=== PATIENT | female | born 1965 | race Caucasian/White ===

== ENCOUNTER 2018-06-25 11:04 | Inpatient (IN) | payer OTHER ==
[~2018-06-25 11:04] MED LIST: BUPIVACAINE 0.75%/DEXT (SPINAL) 2 ML INJ
[2018-06-25] MEDS: HIP PAIN COCKTAIL VANCO INJ ×2 (12:00→13:59)
[2018-06-25] MEDS: oxyCODONE (CR) 10 MG TAB [oxyCONTIN] PO (12:03)
[2018-06-25] MEDS: LACTATED RINGER'S 1,000 ML IV* (12:04)
[2018-06-25] MEDS: LANSOPRAZOLE 30 MG CAP PO (12:04)
[2018-06-25] MEDS: ONDANSETRON 4 MG INJ IV ×3 (12:04→18:36)
[2018-06-25] MEDS: DEXAMETHASONE 4 MG/ML 1 ML INJ IV (12:04)
[2018-06-25] MEDS: VANCOMYCIN 1 GM (PMX) 250 ML IVPB (12:07)
[2018-06-25] MEDS ORDERED: BISACODYL 10 MG SUPP PR (13:00)
[2018-06-25] MEDS ORDERED: NALOXONE (0.4 MG/ML) INJ IV ×2 (13:00→14:00)
[2018-06-25] MEDS ORDERED: MAGNESIUM HYDROXIDE 30ML CUP PO (13:00)
[2018-06-25] MEDS ORDERED: NA PHOSPHATE/BIPHOS 133 ML ENEMA PR (13:00)
[2018-06-25] MEDS ORDERED: DIPHENHYDRAMINE 50 MG INJ IV ×2 (13:00→14:00)
[2018-06-25] MEDS ORDERED: SENNA/DOCUSATE NA (8.6MG/50MG) TAB PO (13:00)
[2018-06-25] MEDS ORDERED: ONDANSETRON 4 MG INJ (13:15)
[2018-06-25] MEDS ORDERED: LIDOCAINE 2% (SDV) 5 ML INJ (13:15)
[2018-06-25] MEDS ORDERED: PROPOFOL 20 ML (13:15)
[2018-06-25] MEDS ORDERED: METOCLOPRAMIDE 10 MG INJ (13:15)
[2018-06-25] MEDS ORDERED: morphine SULFATE/PF (10 MG/10 ML) INJ (13:15)
[2018-06-25] MEDS: BACITRACIN 50000 UNITS INJ (13:59)
[2018-06-25] MEDS: POLYMYXIN B 500000 UNIT INJ (13:59)
[2018-06-25] MEDS ORDERED: HYDROmorphONE 0.5 MG/0.5 ML SYG IV (14:00)
[2018-06-25] MEDS: TRANEXAMIC ACID 1,000 MG in NS 100 ML PRE-OP X1 IVPB (14:00)
[2018-06-25] MEDS ORDERED: ONDANSETRON 4 MG INJ IV ×2 (14:00→22:00)
[2018-06-25] MEDS ORDERED: EPHEDrine SULFATE 50 MG/5 ML SYG (14:29)
[2018-06-25] MEDS: TRANEXAMIC ACID 1,000 MG in NS 100 ML INTRA-OP X1 IVPB (14:35)
[2018-06-25] MEDS: DOCUSATE SODIUM 100 MG CAP PO (16:01)
[2018-06-25] MEDS: ASPIRIN (EC) 325 MG TAB PO ×2 (16:02→19:18)
[2018-06-25] MEDS: SOD CHLORIDE 0.9% 1,000 ML IV (17:19)
[2018-06-25] MEDS ORDERED: VANCOMYCIN 1 GM (PMX) 250 ML IVPB (18:00)
[2018-06-25] MEDS: DIPHENHYDRAMINE 25 MG CAP PO (20:25)
[2018-06-25] MEDS: VENLAFAXINE (XR) 75 MG CAP PO (20:25)
[2018-06-25] MEDS: GABAPENTIN 100 MG CAP PO (20:26)
[2018-06-25] MEDS: MULTIVITAMINS THERAPEUTIC TAB PO (20:26)
[2018-06-25] MEDS: LOSARTAN 25 MG TAB PO (21:00)
[2018-06-26] MEDS: VANCOMYCIN 1 GM (PMX) 250 ML IVPB ×2 (00:56→12:37)
[2018-06-26] MEDS: ONDANSETRON 4 MG INJ IV ×2 (00:57→06:31)
[2018-06-26] MEDS: SOD CHLORIDE 0.9% 1,000 ML IV ×2 (01:16→06:31)
[2018-06-26 05:34] LABS: ADD MAN DIFF? NO
[2018-06-26 05:41] LABS: WHITE BLOOD COUNT 8.4 10^3/ul (4.8-10.8)
[2018-06-26 05:41] LABS: BASOPHILS % 0.1 % (0.0-2.0); HEMATOCRIT 27.7 % (37.0-47.0); HEMOGLOBIN 8.7 g/dl (12.0-16.0); LYMPHOCYTES # 0.9 10^3/ul (0.8-2.9); LYMPHOCYTES % 11.1 % (15.0-51.0); MEAN CORPUSCULAR HEMOGLOBIN 27.4 pg (29.0-33.0); MEAN CORPUSCULAR HGB CONC 31.4 g/dl (32.0-37.0); MEAN CORPUSCULAR VOLUME 87.1 fl (82.0-101.0); MEAN PLATELET VOLUME 10.2 fl (7.4-10.4); MONOCYTE # 0.9 10^3/ul (0.3-0.9); MONOCYTES % 10.3 % (0.0-11.0); NEUTROPHIL # 6.6 10^3/ul (1.6-7.5); PLATELET COUNT 232 10^3/UL (140-415); RED BLOOD COUNT 3.18 10^6/ul (4.20-5.40); RED CELL DISTRIBUTION WIDTH 14.5 % (11.5-14.5)
[2018-06-26 05:56] LABS: ANION GAP 9 (8-16); BLOOD UREA NITROGEN 21 mg/dl (7-20); CALCIUM 8.4 mg/dl (8.4-10.2); CARBON DIOXIDE 26 mmol/L (21-31); CHLORIDE 107 mmol/L (97-110); GLUCOSE 113 mg/dl (70-220); POTASSIUM 4.6 mmol/L (3.5-5.1); SODIUM 137 mmol/L (135-144)
[2018-06-26] MEDS: BETHANECHOL 25 MG TAB PO (06:31)
[2018-06-26] MEDS: HYDROmorphONE 0.5 MG/0.5 ML SYG IV (06:47)
[2018-06-26] MEDS: DOCUSATE SODIUM 100 MG CAP PO ×2 (08:44→21:11)
[2018-06-26] MEDS: ASPIRIN (EC) 325 MG TAB PO ×2 (08:44→21:11)
[2018-06-26] MEDS: GABAPENTIN 100 MG CAP PO ×2 (08:44→21:10)
[2018-06-26] MEDS: IBUPROFEN 800 MG TAB PO ×3 (08:44→21:10)
[2018-06-26] MEDS: traMADol 50 MG TAB PO ×2 (08:45→18:44)
[2018-06-26] MEDS: FERROUS FUMARATE (SR) TAB PO ×2 (08:45→21:11)
[2018-06-26] MEDS ORDERED: CELECOXIB 200 MG CAP PO (09:00)
[2018-06-26] MEDS: VENLAFAXINE (XR) 75 MG CAP PO (21:10)
[2018-06-26] MEDS: LOSARTAN 25 MG TAB PO (21:11)
[2018-06-26] MEDS: MULTIVITAMINS THERAPEUTIC TAB PO (21:11)
[2018-06-26] MEDS: KETOROLAC 15 MG INJ IV (23:43)
[2018-06-27] MEDS: SOD CHLORIDE 0.9% 1,000 ML IV (01:07)
[2018-06-27 05:00] LABS: ADD MAN DIFF? NO
[2018-06-27 05:08] LABS: BASOPHILS % 0.3 % (0.0-2.0); EOSINOPHILS % 0.2 % (0.0-7.0); HEMATOCRIT 29.4 % (37.0-47.0); HEMOGLOBIN 9.2 g/dl (12.0-16.0); LYMPHOCYTES # 0.8 10^3/ul (0.8-2.9); LYMPHOCYTES % 12.5 % (15.0-51.0); MEAN CORPUSCULAR HEMOGLOBIN 27.1 pg (29.0-33.0); MEAN CORPUSCULAR HGB CONC 31.3 g/dl (32.0-37.0); MEAN CORPUSCULAR VOLUME 86.7 fl (82.0-101.0); MEAN PLATELET VOLUME 10.1 fl (7.4-10.4); MONOCYTE # 0.8 10^3/ul (0.3-0.9); MONOCYTES % 11.4 % (0.0-11.0); NEUTROPHILS % 75.4 % (39.0-77.0); PLATELET COUNT 231 10^3/UL (140-415); RED BLOOD COUNT 3.39 10^6/ul (4.20-5.40); RED CELL DISTRIBUTION WIDTH 14.6 % (11.5-14.5)
[2018-06-27 05:08] LABS: WHITE BLOOD COUNT 6.6 10^3/ul (4.8-10.8)
[2018-06-27 05:55] LABS: ANION GAP 13 (8-16); BLOOD UREA NITROGEN 14 mg/dl (7-20); CALCIUM 8.8 mg/dl (8.4-10.2); CARBON DIOXIDE 27 mmol/L (21-31); CHLORIDE 108 mmol/L (97-110); CREATININE 0.77 mg/dl (0.44-1.00); GLUCOSE 119 mg/dl (70-220); SODIUM 144 mmol/L (135-144)
[2018-06-27] MEDS: traMADol 50 MG TAB PO (06:29)
[2018-06-27] MEDS: PANTOPRAZOLE (EC) 40 MG TAB PO (06:29)
[2018-06-27] MEDS: IBUPROFEN 800 MG TAB PO (08:27)
[2018-06-27] MEDS: FERROUS FUMARATE (SR) TAB PO (08:28)
[2018-06-27] MEDS: GABAPENTIN 100 MG CAP PO (08:28)
[2018-06-27] MEDS: ASPIRIN (EC) 325 MG TAB PO (08:28)
[2018-06-27] MEDS: DOCUSATE SODIUM 100 MG CAP PO (08:28)
[2018-06-27] MEDS: KETOROLAC 15 MG INJ IV (08:31)
== END 2018-06-27 12:15 | disposition home health service (06) | DRG 470 ==
LOC: REC 11:04 → MS1 17:00
PROC: 0SRD069 Replacement of Left Knee Joint with Oxidized Zirconium on Polyethylene Synthetic Substitute, Cemented, Open Approach (ICD-10-PCS; principal; 2018-06-25 13:15)
DX: M17.12 Unilateral primary osteoarthritis, left knee (principal); I10 Essential (primary) hypertension
CPT/HCPCS: 73560; 80048; 85025; 87081; 87086; 88304; 88311; 97110; 97116; 97161; 97166; 97530

== ENCOUNTER 2018-10-22 07:21 | Inpatient (IN) | payer OTHER ==
[2018-10-22] MEDS: LACTATED RINGER'S 1,000 ML IV* (06:00)
[2018-10-22] MEDS: TRANEXAMIC ACID 1,000 MG in NS 100 ML INTRA-OP X1 IVPB (06:00)
[~2018-10-22 07:21] MED LIST changes: -BUPIVACAINE 0.75%/DEXT (SPINAL) 2 ML INJ; +CEFAZOLIN 1 GM INJ
[2018-10-22] MEDS: VANCOMYCIN 1 GM (PMX) 250 ML IVPB ×2 (08:34→19:56)
[2018-10-22] MEDS: LANSOPRAZOLE 30 MG CAP PO (08:34)
[2018-10-22] MEDS: DEXAMETHASONE 4 MG/ML 1 ML INJ IV (08:34)
[2018-10-22] MEDS: ONDANSETRON 4 MG INJ IV ×2 (08:34→22:04)
[2018-10-22] MEDS: SOD CHLORIDE 0.9% 1,000 ML IV ×2 (10:04→17:53)
[2018-10-22] MEDS ORDERED: morphine SULFATE/PF (10 MG/10 ML) INJ (10:23)
[2018-10-22] MEDS ORDERED: MIDAZOLAM 1 MG/ML 2 ML INJ (10:23)
[2018-10-22] MEDS ORDERED: FENTAnyl 50 MCG/ML VIAL (10:23)
[2018-10-22] MEDS: TRANEXAMIC ACID 1,000 MG in NS 100 ML PRE-OP X1 IVPB (10:24)
[2018-10-22] MEDS ORDERED: BETHANECHOL 25 MG TAB PO (10:30)
[2018-10-22] MEDS ORDERED: NA PHOSPHATE/BIPHOS 133 ML ENEMA PR (10:30)
[2018-10-22] MEDS ORDERED: BISACODYL 10 MG SUPP PR (10:30)
[2018-10-22] MEDS ORDERED: NACL 0.9% 3 ML SYG IV (10:30)
[2018-10-22] MEDS ORDERED: MAGNESIUM HYDROXIDE 30ML CUP PO (10:30)
[2018-10-22] MEDS ORDERED: SENNA/DOCUSATE NA (8.6MG/50MG) TAB PO (10:30)
[2018-10-22] MEDS ORDERED: NALOXONE (0.4 MG/ML) INJ IV (10:30)
[2018-10-22] MEDS: HIP PAIN COCKTAIL VANCO INJ (11:41)
[2018-10-22] MEDS: POLYMYXIN B 500000 UNIT INJ (11:41)
[2018-10-22] MEDS: BACITRACIN 50000 UNITS INJ IRR (11:41)
[2018-10-22] MEDS ORDERED: LIDOCAINE 2% (SDV) 5 ML INJ (12:03)
[2018-10-22] MEDS ORDERED: ONDANSETRON 4 MG INJ (12:03)
[2018-10-22] MEDS ORDERED: ROCURONIUM 50 MG INJ (12:03)
[2018-10-22] MEDS ORDERED: PROPOFOL 20 ML (12:03)
[2018-10-22] MEDS ORDERED: METOCLOPRAMIDE 10 MG INJ IV (12:30)
[2018-10-22] MEDS ORDERED: FENTAnyl 50 MCG/ML VIAL IV (12:30)
[2018-10-22] MEDS ORDERED: DIPHENHYDRAMINE 50 MG INJ IV (12:30)
[2018-10-22] MEDS ORDERED: ONDANSETRON 4 MG INJ IV (12:30)
[2018-10-22] MEDS ORDERED: hydrALAzine 20 MG INJ IV (12:30)
[2018-10-22] MEDS ORDERED: LABETALOL HCL 20MG INJ IV (12:30)
[2018-10-22] MEDS ORDERED: HYDROmorphONE 1 MG/5 ML IV SYRINGE IV ×2 (12:30)
[2018-10-22] MEDS: ASPIRIN 81 MG TAB PO (12:52)
[2018-10-22] MEDS: DOCUSATE SODIUM 100 MG CAP PO (12:53)
[2018-10-22] MEDS: GABAPENTIN 100 MG CAP PO ×2 (13:00→21:37)
[2018-10-22] MEDS: traMADol 50 MG TAB PO (17:53)
[2018-10-22] MEDS: VENLAFAXINE (XR) 75 MG CAP PO (21:36)
[2018-10-22] MEDS: FENOFIBRATE 145 MG TAB PO (21:36)
[2018-10-22] MEDS: MULTIVITAMINS THERAPEUTIC TAB PO (21:36)
[2018-10-22] MEDS: LOSARTAN 25 MG TAB PO (21:37)
[2018-10-22] MEDS: DIPHENHYDRAMINE 50 MG INJ IV (22:04)
[2018-10-22] MEDS: oxyCODONE 5 MG TAB PO (22:04)
[2018-10-23] MEDS: traMADol 50 MG TAB PO ×2 (04:52→11:08)
[2018-10-23 05:21] LABS: ADD MAN DIFF? NO
[2018-10-23 05:27] LABS: WHITE BLOOD COUNT 7.6 10^3/ul (4.8-10.8)
[2018-10-23 05:27] LABS: BASOPHILS % 0.3 % (0.0-2.0); HEMATOCRIT 28.2 % (37.0-47.0); HEMOGLOBIN 8.7 g/dl (12.0-16.0); LYMPHOCYTES # 0.9 10^3/ul (0.8-2.9); LYMPHOCYTES % 12.2 % (15.0-51.0); MEAN CORPUSCULAR HEMOGLOBIN 26.4 pg (29.0-33.0); MEAN CORPUSCULAR HGB CONC 30.9 g/dl (32.0-37.0); MEAN CORPUSCULAR VOLUME 85.7 fl (82.0-101.0); MEAN PLATELET VOLUME 9.9 fl (7.4-10.4); MONOCYTE # 0.9 10^3/ul (0.3-0.9); MONOCYTES % 12.2 % (0.0-11.0); NEUTROPHIL # 5.7 10^3/ul (1.6-7.5); NEUTROPHILS % 74.9 % (39.0-77.0); PLATELET COUNT 281 10^3/UL (140-415); RED BLOOD COUNT 3.29 10^6/ul (4.20-5.40); RED CELL DISTRIBUTION WIDTH 15.3 % (11.5-14.5)
[2018-10-23 06:02] LABS: PHOSPHORUS 3.6 mg/dl (2.5-4.9)
[2018-10-23 06:02] LABS: CHOL/HDL RATIO 3.4 RATIO; CHOLESTEROL 136 mg/dl (100-200); HDL CHOLESTEROL 39 mg/dl (37-92); LDL CHOLESTEROL,CALCULATED 82 mg/dl; TRIGLYCERIDES 75 mg/dl (0-149)
[2018-10-23 06:22] LABS: ANION GAP 6 (5-13); BLOOD UREA NITROGEN 26 mg/dl (7-20); CALCIUM 8.5 mg/dl (8.4-10.2); CARBON DIOXIDE 28 mmol/L (21-31); CHLORIDE 103 mmol/L (97-110); CREATININE 0.83 mg/dl (0.44-1.00); Estimated GFR > 60 mL/min (>60); GLUCOSE 113 mg/dl (70-220); POTASSIUM 4.4 mmol/L (3.5-5.1); SODIUM 137 mmol/L (135-144)
[2018-10-23] MEDS: oxyCODONE 5 MG TAB PO ×2 (09:18→15:46)
[2018-10-23] MEDS: DIPHENHYDRAMINE 50 MG INJ IV (09:18)
[2018-10-23] MEDS: GABAPENTIN 100 MG CAP PO ×2 (09:28→13:24)
[2018-10-23] MEDS: DOCUSATE SODIUM 100 MG CAP PO (09:28)
[2018-10-23] MEDS: CELECOXIB 100 MG CAP PO (09:28)
[2018-10-23] MEDS: ASPIRIN (EC) 81 MG TAB PO (09:28)
[2018-10-23] MEDS ORDERED: ONDANSETRON 4 MG INJ IV (10:30)
[2018-10-23] MEDS: VANCOMYCIN 1 GM (PMX) 250 ML IVPB (10:38)
[2018-10-23] MEDS: SOD CHLORIDE 0.9% 1,000 ML IV (13:25)
[2018-10-24] MEDS ORDERED: PANTOPRAZOLE (EC) 40 MG TAB PO (06:00)
== END 2018-10-23 17:15 | disposition home health service (06) | DRG 470 ==
LOC: REC 07:21 → MS1 13:40
PROC: 0SRC069 Replacement of Right Knee Joint with Oxidized Zirconium on Polyethylene Synthetic Substitute, Cemented, Open Approach (ICD-10-PCS; principal; 2018-10-22 10:24)
DX: M17.11 Unilateral primary osteoarthritis, right knee (principal); I10 Essential (primary) hypertension; E78.5 Hyperlipidemia, unspecified; M54.2 Cervicalgia
CPT/HCPCS: 73560; 80048; 80061; 83735; 84100; 85025; 87081; 88304; 88311; 97110; 97116; 97161; 97167; 97530